=== PATIENT | male | born 1940 | race Caucasian/White ===

== ENCOUNTER 2016-08-01 19:32 | Inpatient (IN) | payer OTHER ==
[2016-08-01] MEDS ORDERED: G.I. COCKTAIL PO ONE (20:39)
[2016-08-01] MEDS ORDERED: LABETALOL IV ONE (20:50)
--- NOTE | 2016-08-01 20:50 | PROVIDER DOCUMENTATION ---
HPI-Chest Pain - General Chief Complaint: Chest Pain Stated Complaint: PANIC ATTACKS/STRESS Time Seen by Provider: 08/01/16 20:33 Allergies/Adverse Reactions: Patient Allergies Allergy/AdvReac Type Severity Reaction Status Date / Time No Known Allergies Allergy Verified 08/01/16 20:13 Home Medications: Home Medication List Medication Instructions Recorded Confirmed Last Taken Type Aspirin [Aspir-Low] 81 mg PO DAILY 08/01/16 08/01/16 Unknown History Cholecalciferol (Vitamin D3) 1 tab PO DAILY 08/01/16 08/01/16 Unknown History [Vitamin D3] Dutasteride 0.5 mg PO DAILY 08/01/16 08/01/16 Unknown History Esomeprazole [Nexium] 40 mg PO DAILY 08/01/16 08/01/16 Unknown History Hydrochlorothiazide 25 mg PO DAILY 08/01/16 08/01/16 Unknown History Lisinopril 40 mg PO DAILY 08/01/16 08/01/16 Unknown History Magnesium Citrate [Citrate of 296 ml PO PRN PRN 08/01/16 08/01/16 Unknown History Magnesia] Metoprolol Succinate E.r. [Toprol 100 mg PO BID 08/01/16 08/01/16 Unknown History Xl] Multivitamin [Multivitamins] 1 tab PO DAILY 08/01/16 08/01/16 Unknown History Tamsulosin [Flomax] 0.4 mg PO DAILY 08/01/16 08/01/16 Unknown History - History of Present Illness-CP Nature of Presenting Problem: PT STATES "I HAVE BEEN HAVING ANXIETY PROBLEMS SINCE I FOUND OUT MY HAS BREAST CANCER"."I HAVE NOT BEEN SLEEPING WELL AND PACING AND I HAVE BEEN HAVING EPIGASTRIC PAIN ON AND OFF ITS WORSE TODAY PT DENIES ANY SOB". Location: reports: epigastric Chest Pain Radiation: reports: no radiation Quality of Pain: reports: indigestion Severity in ED: mild Onset/Duration: 5 days ago Timing: still present Context/Activities at Onset: reports: none Modifying Factors: improves with: nothing Associated Symptoms: reports: heartburn. denies: back pain, diaphoresis, dizziness, edema, fatigue, fever/chills, nausea, vomiting, weakness Nitro Today/Relief: no nitro taken today Aspirin Treatment Today: no aspirin today Similar Symptoms Previously?: No Recently Seen Here or By Another Healthcare Provider: No Review of Systems - Adult - REVIEW OF SYSTEMS - ADULT Constitutional: denies: chills, fever, night sweats Eyes: denies: dry eyes, double vision, redness Ears, Nose, Mouth & Throat: denies: ear pain, sinus problem, throat pain Cardiovascular: reports: chest pain (EPIGASTRIC). denies: edema, irregular heart rate, palpitations, syncope Respiratory: denies: cough, shortness of breath, wheezing Gastrointestinal: reports: abdominal pain (EPIGASTRIC). denies: diarrhea, nausea, vomiting Genitourinary: denies: dysuria, flank pain, hematuria Musculoskeletal: denies: back pain, muscle aches, neck pain Integumentary: denies: hives, itching, rash Neurological: denies: dizziness/vertigo, headache/migraines, numbness, syncope Psychiatric: reports: anxiety, panic attacks. denies: alcohol/drug dependence, depression, emotional problems All Other Systems: Reviewed and Negative Past History - Adult - PAST MEDICAL HISTORY-ADULT Review of Records: reports: Old Records Reviewed, Nursing Assessment Review, Medications Reviewed Cardiovascular: reports: HTN Gastrointestinal: reports: colitis - PRIOR SURGERIES/PROCEDURES Surgical/Procedure History: reports: cholecystectomy, hernia repair - IMMUNIZATION STATUS Childhood Immunizations: See Nurse Assessment Flu Vaccine: See Nurse Assessment - FAMILY HISTORY Family History: reviewed, not pertinent - SOCIAL HISTORY Smoking: quit greater than 1 year Substance Use: none/never Alcohol Use Frequency: never Living Situation: family Physical Exam-General - PHYSICAL EXAM-ADULT Initial Vital Signs Reviewed: Yes - CONSTITUTIONAL General Appearance: appears well, alert, no apparent distress - EYES Eyes: PERRL/EOMI, pink conjunctivae, fundi clear, no AV nicking - HEAD, EARS, NOSE, MOUTH & THROAT HENMT: normocephalic/atraumatic, moist mucous membranes, normal ENT inspection, TMs normal, pharynx normal - NECK Neck: non-tender, full range of motion, supple, normal inspection - RESPIRATORY Respiratory: chest non-tender, lungs clear, normal breath sounds, no pleuratic chest pain, no respiratory distress, no accessory muscle use - CARDIOVASCULAR Cardiovascular: normal peripheral pulses, regular rate, rhythm, no edema, no gallop, no JVD, no murmur - GASTROINTESTINAL (ABDOMEN) Abdominal Exam: normal bowel sounds, non tender, soft, no organomegaly, no pulsatile mass - MUSCULOSKELETAL Back Exam: normal inspection, no CVA tenderness, no vertebral tenderness Extremity: normal range of motion, non-tender, normal gait, normal inspection, no pedal edema - SKIN Integumentary: normal color, normal turgor, warm/dry - PSYCHIATRIC Psych/Mental Status: normal mood/affect, normal thought content, normal thought process, oriented x 3 Progress - XRAY 1 XRAY Study: Chest Impression: Normal XRAY Interpretation: NAP - CONSULTS/PCP/HOSPITALIST Notification #1 *Consult/PCP/Hospitalist*: Time Discussed: 22:38 Consult Disposition: Admit Departure - Departure Time of Disposition Order: 22:38 DIAGNOSIS: Chest pain Qualifiers: Chest pain type: unspecified Qualified Code(s): R07.9 - Chest pain, unspecified Disposition: ADMITTED INPATIENT 09 Certified Medical Emergency: Emergent Condition: Good Attestation - Scribe Verification/Attestation Scribe:: Raul Jackson Acting as Scribe for:: Danielito Noonan Scribe documention review:: This chart was documented by a scribe and accurately reflects the service the provider performed and the decisions made by the provider.
[2016-08-01 20:53] LABS: MANUAL DIFF NEEDED? NO
[2016-08-01 20:58] LABS: BASO% 0.1 % (0.0-0.8); EOS# 0.11 X1000 (0.0-0.7); EOS% 1.2 % (0.0-10.0); HEMATOCRIT 42.7 % (42.0-52.0); HEMOGLOBIN 14.7 g/dL (14.0-18.0); IMM GRAN# 0.02 X1000 (0.0-0.04); IMM GRAN% 0.2 % (0.0-0.5); LYMPH% 20.3 % (20.5-51.1); MCH 30.2 PG (27-31); MCHC 34.4 g/dL (33-37); MCV 87.7 FL (81-99); MONO% 7.5 % (1.7-9.3); MPV 9.6 FL (7.4-10.4); NEUT% 70.7 % (42.2-75.2); PLT 239 X1000 (130-400); RBC 4.87 XMIL (4.7-6.1)
[2016-08-01 21:08] LABS: AMYLASE 51 U/L (20-200); LIPASE 27 U/L (13-60)
[2016-08-01 21:11] LABS: ALBUMIN 4.6 g/dL (3.5-5.0); CALCIUM 9.9 mg/dL (8.8-10.2); MAGNESIUM 1.8 mg/dL (1.5-2.7); POTASSIUM 3.7 mmol/L (3.5-5.1); TOTAL BILIRUBIN 0.7 mg/dL (0.20-1.00)
[2016-08-01 21:13] LABS: INR 0.98 (0.86-1.15); PROTIME 13.3 Seconds (12.1-15.5)
[2016-08-01 21:14] LABS: PTT PL 30.4 Seconds (22.6-43.9)
--- NOTE | 2016-08-01 22:20 | EKG Report ---
Test Performed on : 08/01/2016 10:11:18 PM Test Reason : CHEST PAIN Blood Pressure : / mmHG Vent. Rate : 075 BPM Atrial Rate : 075 BPM P-R Int : 182 ms QRS Dur : 120 ms QT Int : 390 ms P-R-T Axes : 052 -36 047 degrees QTc Int : 435 ms Sinus rhythm. with premature atrial complexes. with aberrant conduction. Left axis deviation Septal infarct , age undetermined Abnormal ECG When compared with ECG of 05-APR-2010 07:44, aberrant conduction. is now present QRS duration has increased Septal infarct is now present Unconfirmed Result
[2016-08-01] MEDS ORDERED: MORPHINE IV PRN (22:25)
[2016-08-01] MEDS ORDERED: ZOFRAN IV PRN (22:25)
--- NOTE | 2016-08-01 22:44 | ED EKG INTERP ---
EKG Interpretation - EKG Time of EKG reading by physician:: 22:11 EKG Read and Signed by:: Danielito Noonan Rate: 75 Rhythm: SINUSW RHYTHM WITH PAC WITH ABERRANT CONDUCTION [place]: left QRS: normal OR Interval: normal ST Wave: normal
[2016-08-01] MEDS ORDERED: ATIVAN IV ONE ×2 (23:10→23:11)
--- NOTE | 2016-08-01 23:18 | Diag Imaging Result Document ---
PROCEDURE NAME: CHEST-2 VIEWS - 08/01/2016 PA AND LATERAL RADIOGRAPH OF THE CHEST: COMPARISON: 05/16/2016. FINDINGS: The lungs are grossly clear. There is a tiny calcified granuloma at the periphery of the left mid lung zone, stable. There is no definite pleural fluid collection. Cardiac silhouette and central vasculature are unremarkable. IMPRESSION: No definite acute chest pathology.
[2016-08-02] MEDS ORDERED: MORPHINE IV PRN (06:53)
[2016-08-02 08:22] VITALS: BP 187/90
[2016-08-02] MEDS ORDERED: PRINIVIL PO SCH (11:00)
[2016-08-02] MEDS ORDERED: HYDROCHLOROTHIAZIDE PO SCH (11:00)
[2016-08-02] MEDS ORDERED: TOPROL XL PO SCH (11:00)
--- NOTE | 2016-08-02 14:39 | HISTORY AND PHYSICAL ---
PRIMARY CARE PHYSICIAN: Dr. George CHIEF COMPLAINT: Increased anxiety since his was diagnosed with breast cancer recently. HISTORY OF PRESENT ILLNESS: This is a 76-year-old male who presented to [facility] ER stating that he has been having increased anxiety problems since he found out his had breast cancer. Had not been sleeping well, had been doing a lot of pacing and having some epigastric pain on and off, and that it had been worse on the day of arrival. Denied any shortness of breath. Denied any chest pain. Workup in the ER was essentially negative. He has a slight increase in his creatinine at 1.3. It is unclear as there is no previous to know if this is his baseline, and his troponins x2 sets have been negative. He was admitted for further evaluation and treatment. It is noted in the ER he was given Ativan total 3 mg IV, labetalol 10 mg IV, and a GI cocktail 30 mL p.o. x1. PAST MEDICAL HISTORY: 1. Hypertension. 2. Colitis. PAST SURGICAL HISTORY: 1. Cholecystectomy. 2. Hernia repair. FAMILY HISTORY: Noncontributory. SOCIAL HISTORY: Currently lives with his . Denies any tobacco, alcohol, or illicit drug use. ALLERGIES: He has no known drug allergies. HOME MEDICATIONS: 1. He takes aspirin 81 mg p.o. daily. 2. Vitamin D3 one p.o. daily. 3. Dutasteride 0.5 mg p.o. daily. 4. Nexium 40 mg p.o. daily. 5. Hydrochlorothiazide 25 mg p.o. daily. 6. Lisinopril 40 mg p.o. daily. 7. Magnesium citrate p.o. p.r.n. 8. Toprol XL 100 mg p.o. b.i.d. 9. Multivitamin one p.o. daily. 10. Flomax 0.4 mg p.o. daily. LABORATORY DATA: Laboratory data showed a white blood cell count of 9.37, hemoglobin 14.7, hematocrit 42.7, platelets 239, PT and INR of 13.3 and 0.98. Sodium of 139, potassium 3.7, chloride 102, CO2 25, BUN of 26 with a creatinine of 1.3, glucose 112, magnesium 1.8. Cardiac enzymes x2 sets were negative. Amylase 51, lipase 27. IMAGING STUDIES: Chest x-ray showed no acute disease. EKG: EKG showed sinus rhythm with a PAC at 75. REVIEW OF SYSTEMS: He denied any fever, chills, blurred vision, dizziness, chest pain, coughing, shortness of breath. He has had some epigastric pain, increased anxiety. Denied any nausea, vomiting, diarrhea, burning or hurting with urination. PHYSICAL EXAMINATION: VITAL SIGNS: Temperature on arrival 98.2, pulse 74, respirations 18. Blood pressure was 163/111, saturating 100% on room air. This a.m. his blood pressure is 187/90, saturating 99% on room air. GENERAL: This is a 76-year-old male who is sitting up in the bed and answers questions appropriately. HEENT: Normocephalic and atraumatic. Pupils are equal, round, and reactive to light. Extraocular movements are intact. The oropharynx and nares are clear. NECK: Supple. LUNGS: Clear to auscultation bilaterally with equal lung expansion and chest wall movement. HEART: Regular rate and rhythm. No murmurs, rubs, or gallops. ABDOMEN: Soft and nontender, nondistended. Bowel sounds are present x4 quadrants. EXTREMITIES: There is no clubbing, cyanosis, or edema. NEUROLOGICAL: The cranial nerves II through XII are grossly intact. ASSESSMENT: 1. Anxiety. 2. Epigastric pain. 3. Hypertension. PLAN: He was admitted for observation, placed on telemetry, regular diet. We trended his cardiac enzymes, which have all been negative. This appears to be anxiety related to increased stressors at home with his being diagnosed with breast cancer. We will place him on some low-dose Xanax 0.5 mg p.o. b.i.d. Dictated by ANABELLA Lewis for Roderick Vazquez MD
--- NOTE | 2016-08-02 18:32 | DISCHARGE SUMMARY ---
ADMISSION DATE: 08/01/2016 DISCHARGE DATE: 08/02/2016 PRIMARY CARE PHYSICIAN: Dr. George ADMISSION DIAGNOSES: 1. Anxiety. 2. Epigastric abdominal pain. 3. Hypertension. DISCHARGE DIAGNOSES: 1. Anxiety. 2. Epigastric abdominal pain. 3. Hypertension. SUMMARY OF FINDINGS: This is a 76-year-old male who presented to [facility] ER with complaint of increased anxiety and stress since his had been diagnosed recently with breast cancer. He has noted some epigastric pain also. Workup in the ER was negative except for a mild increase in his creatinine at 1.3, but this could possibly be at his baseline, but we do not have any comparison labs at this time. He was ruled out from a cardiac standpoint, and this is felt that it is most definitely anxiety related to his 's recent diagnosis of breast cancer, and it is felt that he can safely be discharged home today. DISCHARGE MEDICATIONS: We will give him a prescription for Xanax 0.5 mg p.o. b.i.d. one-half to one p.o. b.i.d. p.r.n., #30, with no refills. He will continue all of his other home medications. FOLLOWUP: Will need to follow up with his primary care physician, Dr. George, in one to two weeks. INSTRUCTIONS: All discharge instructions have been reviewed with the patient. He verbalizes understanding. TIME: 35 minutes. Dictated by ANABELLA Lewis for Roderick Vazquez MD
== END 2016-08-02 11:16 | disposition home or self-care (01) | DRG 880 ==
LOC: P.ED 19:32 → P.MEDSURG 22:33
PROVIDERS: ATTEND Internal Medicine
DX: F41.9 Anxiety disorder, unspecified (principal); I10 Essential (primary) hypertension; R10.13 Epigastric pain; Z63.79 Other stressful life events affecting family and household; Z79.82 Long term (current) use of aspirin; Z79.899 Other long term (current) drug therapy
CPT/HCPCS: 71020; 80053; 82150; 82550; 83690; 83735; 83880; 84484; 85025; 85610; 85730; 93005; 94760; 94761; 96374; 96375; J2060

== ENCOUNTER 2016-08-06 20:11 | Emergency (ER) | payer OTHER ==
[2016-08-06] MEDS ORDERED: NITROGLYCERIN SL PRN (20:21)
[2016-08-06] MEDS ORDERED: ASPIRIN PO STA (20:21)
[2016-08-06 20:40] LABS: MANUAL DIFF NEEDED? NO
[2016-08-06 20:49] LABS: BASO% 0.2 % (0.0-0.8); EOS# 0.14 X1000 (0.0-0.7); EOS% 1.4 % (0.0-10.0); HEMATOCRIT 41.1 % (42.0-52.0); HEMOGLOBIN 14.6 g/dL (14.0-18.0); IMM GRAN# 0.02 X1000 (0.0-0.04); IMM GRAN% 0.2 % (0.0-0.5); LYMPH# 2.51 X1000 (1.2-3.4); LYMPH% 24.3 % (20.5-51.1); MCH 31.1 PG (27-31); MCHC 35.5 g/dL (33-37); MCV 87.6 FL (81-99); MONO# 1.12 X1000 (0.11-0.59); MONO% 10.8 % (1.7-9.3); MPV 10.1 FL (7.4-10.4); NEUT% 63.1 % (42.2-75.2); PLT 241 X1000 (130-400); RBC 4.69 XMIL (4.7-6.1)
[2016-08-06 21:00] LABS: INR 1.03; PROTIME 10.8 Seconds (9.2-11.7); PTT 28.2 Seconds (22.0-36.0)
[2016-08-06 21:09] LABS: ALBUMIN 4.3 g/dL (3.5-5.0); CALCIUM 9.7 mg/dL (8.8-10.2); MAGNESIUM 1.8 mg/dL (1.5-2.7); TOTAL BILIRUBIN 0.66 mg/dL (0.20-1.00); TOTAL PROTEIN 6.7 g/dL (6.3-8.3)
--- NOTE | 2016-08-06 22:08 | PROVIDER DOCUMENTATION ---
HPI-Respiratory General <Erik Holden - Last Filed: 08/06/16 22:07> - General Source: patient - History of Present Illness-Resp Severity in ED: reports: mild Onset/Duration: reports: this evening Timing: reports: gone now Cough Quality/Degree: reports: no cough Episode Frequency: no prior episodes Associated Symptoms: reports: shortness of breath Similar Symptoms Previously?: Yes Recently seen or treated by another doctor?: Yes <Sophia Brown - Last Filed: 08/06/16 22:17> - General Chief Complaint: General Adult Stated Complaint: SOB, CP Time Seen by Provider: 08/06/16 21:44 Allergies/Adverse Reactions: Patient Allergies Allergy/AdvReac Type Severity Reaction Status Date / Time No Known Allergies Allergy Verified 08/01/16 20:13 Home Medications: Home Medication List Medication Instructions Recorded Confirmed Last Taken Type Aspirin [Aspir-Low] 81 mg PO DAILY 08/01/16 08/02/16 Unknown History Cholecalciferol (Vitamin D3) 1 tab PO DAILY 08/01/16 08/02/16 Unknown History [Vitamin D3] Dutasteride 0.5 mg PO DAILY 08/01/16 08/02/16 Unknown History Esomeprazole [Nexium] 40 mg PO DAILY 08/01/16 08/02/16 Unknown History Hydrochlorothiazide 25 mg PO DAILY 08/01/16 08/02/16 Unknown History Lisinopril 40 mg PO DAILY 08/01/16 08/02/16 Unknown History Magnesium Citrate [Citrate of 296 ml PO PRN PRN 08/01/16 08/02/16 Unknown History Magnesia] Metoprolol Succinate E.r. [Toprol 100 mg PO BID 08/01/16 08/02/16 Unknown History Xl] Multivitamin [Multivitamins] 1 tab PO DAILY 08/01/16 08/02/16 Unknown History Tamsulosin [Flomax] 0.4 mg PO DAILY 08/01/16 08/02/16 Unknown History Alprazolam [Xanax] 0.5 mg PO BID PRN #30 tablet 08/02/16 Unknown Rx - History of Present Illness-Resp Nature of Presenting Problem: 76 year old M presents to the ED with a cc of shortness of breath with an onset of tonight. PT states that he was seen at [place] Thursday night for the same with some chest fullness and was admitted for observation. PT states that he was discharged with a prescription for Xanax. Pt states that he has not taken any. PT states that shortness of has since resolved. PT states that he has been dealing with this for a few months but states it was at its worst tonight. ( Sophia Brown) Review of Systems - Adult - REVIEW OF SYSTEMS - ADULT Constitutional: denies: chills, fever Eyes: reports: no symptoms reported Ears, Nose, Mouth & Throat: denies: ear pain, throat pain Cardiovascular: denies: chest pain, palpitations Respiratory: reports: shortness of breath. denies: cough Gastrointestinal: denies: abdominal pain, nausea Genitourinary: reports: no symptoms reported Musculoskeletal: reports: no symptoms reported Integumentary: reports: no symptoms reported Neurological: reports: no symptoms reported Psychiatric: reports: no symptoms reported Endocrine: reports: no symptoms reported Hematologic/Lymphatic: reports: no symptoms reported Allergic/Immunologic: reports: no symptoms reported All Other Systems: Reviewed and Negative <Sophia Brown - Last Filed: 08/06/16 22:17> Past History - Adult - PAST MEDICAL HISTORY-ADULT Cardiovascular: reports: HTN Gastrointestinal: reports: colitis Neurological: reports: denies history Endocrine/Immune: reports: denies history Other Conditions: reports: denies history - PRIOR SURGERIES/PROCEDURES Surgical/Procedure History: reports: cholecystectomy, hernia repair - IMMUNIZATION STATUS Childhood Immunizations: See Nurse Assessment Flu Vaccine: See Nurse Assessment - FAMILY HISTORY Family History: reviewed, not pertinent <Erik Holden - Last Filed: 08/06/16 22:07> - PAST MEDICAL HISTORY-ADULT Review of Records: reports: Nursing Assessment Review, Medications Reviewed Major Childhood Illnesses: reports: denies history Cardiovascular: reports: HTN Other Conditions: reports: other cancer - PRIOR SURGERIES/PROCEDURES Surgical/Procedure History: reports: cholecystectomy, hernia repair - IMMUNIZATION STATUS Childhood Immunizations: See Nurse Assessment Flu Vaccine: See Nurse Assessment - SOCIAL HISTORY Smoking: non-smoker Substance Use: none/never Alcohol Use Frequency: never <Sophia Brown - Last Filed: 08/06/16 22:17> Physical Exam-General - PHYSICAL EXAM-ADULT Initial Vital Signs Reviewed: Yes - CONSTITUTIONAL General Appearance: appears well, alert, no apparent distress - RESPIRATORY Respiratory: chest non-tender, lungs clear, normal breath sounds - CARDIOVASCULAR Cardiovascular: normal peripheral pulses, regular rate, rhythm, no edema - GASTROINTESTINAL (ABDOMEN) Abdominal Exam: normal bowel sounds, non tender, soft - MUSCULOSKELETAL Extremity: normal inspection, no pedal edema - SKIN Integumentary: normal color, normal turgor, warm/dry - PSYCHIATRIC Psych/Mental Status: normal mood/affect, normal thought content, normal thought process, oriented x 3 <Sophia Brown - Last Filed: 08/06/16 22:17> Progress <Erik Holden - Last Filed: 08/06/16 22:07> - EKG 1 Time of EKG reading by physician:: 20:24 EKG Read and Signed by:: Erik Holden EKG Interpretation (*Must complete 3 of following elements*): Abnormal Rate: 77 Rhythm: sinus rhythm with frequent PVCs [place]: left - XRAY 1 XRAY Study: Chest Impression: Normal XRAY Interpretation: NAD: Dr. Holden(ER MD) <Sophia Brown - Last Filed: 08/06/16 22:17> - PLAN OF CARE/RESULTS Progress/Plan/Lab Results: plan of care: labs, imaging, medications, EKG Orders Category Date Time Status Cardiac Monitoring DIRECTED Care 08/06/16 20:21 Active Saline Loc NOW Care 08/06/16 20:21 Active CHEST-2 VIEWS [RAD] Stat Exams 08/06/16 20:21 Taken CBC WITH ELECTRONIC DIFF [HEME] Stat Lab 08/06/16 20:30 Completed CK PROFILE [SP CHEM] Stat Lab 08/06/16 20:30 Completed COMPREHENSIVE METABOLIC PANEL [CHEM] Stat Lab 08/06/16 20:30 Completed D-DIMER [CHEM] Stat Lab 08/06/16 20:30 Completed MAGNESIUM [CHEM] Stat Lab 08/06/16 20:30 Completed PRO B-NATRIURETIC PEPTIDE Stat Lab 08/06/16 20:30 Completed PROTIME WITH INR [COAG] Stat Lab 08/06/16 20:30 Completed PTT [COAG] Stat Lab 08/06/16 20:30 Completed TROPONIN T Stat Lab 08/06/16 20:30 Completed Aspirin Med 08/06/16 20:21 Discontinued 325 mg PO STAT STA Nitroglycerin Sl [Nitroglycerin] Med 08/06/16 20:21 Active 0.4 mg SL Q5M PRN PRN EKG [EKG] Stat Ther 08/06/16 20:21 Ordered Laboratory Tests 08/06/16 08/06/16 08/06/16 20:30 20:30 20:30 WBC 10.33 RBC 4.69 L Hgb 14.6 Hct 41.1 L MCV 87.6 MCH 31.1 H MCHC 35.5 RDW Std Deviation 13.0 Plt Count 241 MPV 10.1 Immature Gran % (Auto) 0.2 Neut % (Auto) 63.1 Lymph % (Auto) 24.3 [place] % (Auto) 10.8 H Eos % (Auto) 1.4 Baso % (Auto) 0.2 Immature Gran # (Auto) 0.02 Neut # (Auto) 6.52 H Lymph # (Auto) 2.51 [place] # (Auto) 1.12 H Eos # (Auto) 0.14 Baso # (Auto) 0.02 PT INR PTT (Actin FS) D-Dimer 0.30 Sodium 139 Potassium 4.0 Chloride 99 Carbon Dioxide 24 L Anion Gap 16 BUN 33 H Creatinine 1.5 H Estimated GFR/1.73 m2 45 BUN/Creatinine Ratio 22 Glucose 106 H Calculated Osmolality 285 Calcium 9.7 Magnesium 1.8 Total Bilirubin 0.66 AST 17 ALT 15 Alkaline Phosphatase 67 Creatine Kinase 77 Troponin T [id number] Pept Total Protein 6.7 Albumin 4.3 Globulin 2.4 Albumin/Globulin Ratio 1.8 08/06/16 08/06/16 08/06/16 20:30 20:30 20:30 WBC RBC Hgb Hct MCV MCH MCHC RDW Std Deviation Plt Count MPV Immature Gran % (Auto) Neut % (Auto) Lymph % (Auto) [place] % (Auto) Eos % (Auto) Baso % (Auto) Immature Gran # (Auto) Neut # (Auto) Lymph # (Auto) [place] # (Auto) Eos # (Auto) Baso # (Auto) PT 10.8 INR 1.03 PTT (Actin FS) 28.2 D-Dimer Sodium Potassium Chloride Carbon Dioxide Anion Gap BUN Creatinine Estimated GFR/1.73 m2 BUN/Creatinine Ratio Glucose Calculated Osmolality Calcium Magnesium Total Bilirubin AST ALT Alkaline Phosphatase Creatine Kinase Troponin T < 0.010 Kps-[id number]-[id number] Pept 146 Total Protein Albumin Globulin Albumin/Globulin Ratio Vital Signs - 24 hr 08/06/16 20:17 Temperature 97.7 F Pulse Rate 74 Respiratory 17 Rate Blood Pressure 177/87 O2 Sat by Pulse 100 Oximetry Pt given results and will be d/c home w/o rx to follow up with PCP. Pt verbally understood instructions. PT remained clinically stable throughout the course of the ED stay and will return if symptoms worsen. (Sophia Brown) Departure - Departure Time of Disposition Order: 22:07 Certified Medical Emergency: Emergent <Erik Holden - Last Filed: 08/06/16 22:07> <Sophia Brown - Last Filed: 08/06/16 22:17> - Departure DIAGNOSIS: Anxiety Disposition: HOME 01 Condition: Good Additional Instructions: consider using valerian root and chamoile tea to help your anxiety ED Follow Up Instructions: You have been treated by a care provider in the Emergency Department. These instructions are being provided to you so you can have an understanding of how to care for yourself upon discharge. Upon discharge from the Emergency Department, you are responsible for making arrangements for follow-up care by a physician of your choice. Take all prescribed medications as directed. Return to the Emergency Department immediately for any new or worsening symptoms. You may call the Physician Referral phone number at [phone] to obtain a list of Physicians who are taking new patients. Referrals: Ben George MD [Primary Care Provider] - Attestation - Scribe Verification/Attestation Scribe:: Sophia Brown Acting as Scribe for:: Erik Holden Scribe documention review:: This chart was documented by a scribe and accurately reflects the service the provider performed and the decisions made by the provider. <Sophia Brown - Last Filed: 08/06/16 22:17> Physician Attestation
[2016-08-06 22:27] VITALS: BP 143/86
--- NOTE | 2016-08-07 05:18 | EKG Report ---
Test Performed on : 08/06/2016 8:24:14 PM Test Reason : Chest Pain Blood Pressure : / mmHG Vent. Rate : 077 BPM Atrial Rate : 077 BPM P-R Int : 190 ms QRS Dur : 122 ms QT Int : 392 ms P-R-T Axes : 070 -37 063 degrees QTc Int : 443 ms Sinus rhythm. with occasional premature ventricular complexes. Left axis deviation Septal infarct (cited on or before 01-AUG-2016) Abnormal ECG When compared with ECG of 01-AUG-2016 22:11, premature ventricular complexes. are now present aberrant conduction. is no longer present Unconfirmed Result
--- NOTE | 2016-08-07 08:31 | Diag Imaging Result Document ---
PROCEDURE NAME: CHEST-2 VIEWS - 08/06/2016 FRONTAL AND LATERAL CHEST, THREE VIEWS: COMPARISON: Compared to 08/01/2016. FINDINGS: The lungs are hyperexpanded. The heart is not enlarged. The pulmonary vessels are small. There are no infiltrates. No pleural effusions. No free air beneath the diaphragm. Tiny granuloma in the lateral mid left lung. IMPRESSION: Stable chest.
== END 2016-08-06 22:26 | disposition home or self-care (01) ==
LOC: ED 20:11
DX: F41.9 Anxiety disorder, unspecified (principal); R94.31 Abnormal electrocardiogram [ECG] [EKG]; R06.02 Shortness of breath; R07.9 Chest pain, unspecified; I10 Essential (primary) hypertension; Z79.899 Other long term (current) drug therapy
CPT/HCPCS: 71020; 80053; 82550; 83735; 83880; 84484; 85025; 85379; 85610; 85730; 93005